=== PATIENT | male | born 1950 | race Caucasian/White ===

== ENCOUNTER 2017-04-20 17:32 | Emergency (ER) | payer OTHER ==
[2017-04-20 17:51] VITALS: TEMP 97.9; O2SAT 94
--- NOTE | 2017-04-20 18:08 | EDPHY ---
H & P Stated Complaint: finger laceration Time Seen by Provider: 04/20/17 17:50 HPI/ROS: CHIEF COMPLAINT: Finger laceration HISTORY OF PRESENT ILLNESS: Patient is a 66-year-old man who comes to the emergency department complaining of a laceration to his left index finger at the middle phalanx dorsally. This happened about 30 min ago in his trying to cut bread. He has normal sensation distally and normal range of motion and strength. No other injuries. REVIEW OF SYSTEMS: Constitutional: denies: chills, fever, recent illness, recent injury EENTM: denies: blurred vision, double vision, nose congestion Respiratory: denies: cough, shortness of breath Cardiac: denies: chest pain, irregular heart rate, lightheadedness, palpitations Gastrointestinal/Abdominal: denies: abdominal pain, diarrhea, nausea, vomiting, blood streaked stools Genitourinary: denies: dysuria, frequency, hematuria, pain Musculoskeletal: denies: joint pain, muscle pain Skin: See HPI Neurological: denies: headache, numbness, paresthesia, tingling, dizziness, weakness Hematologic/Lymphatic: denies: blood clots, easy bleeding, easy bruising Immunologic/allergic: denies: HIV/AIDS, transplant EXAM: GENERAL: Well-appearing, well-nourished and in no acute distress. HEAD: Atraumatic, normocephalic. EYES: Pupils equal round and reactive to light, extraocular movements intact, sclera anicteric, conjunctiva are normal. ENT: TMs normal, nares patent, oropharynx clear without exudates. Moist mucous membranes. NECK: Normal range of motion, supple without lymphadenopathy or JVD. LUNGS: Breath sounds clear to auscultation bilaterally and equal. No wheezes rales or rhonchi. HEART: Regular rate and rhythm without murmurs, rubs or gallops. ABDOMEN: Soft, nontender, normoactive bowel sounds. No guarding, no rebound. No masses appreciated. BACK: No CVA tenderness, no spinal tenderness, step-offs or deformities EXTREMITIES: Normal range of motion, no pitting or edema. No clubbing or cyanosis. NEUROLOGICAL: Cranial nerves II through XII grossly intact. Normal speech, normal gait. 5/5 strength, normal movement in all extremities, normal sensation PSYCH: Normal mood, normal affect. SKIN: Is see HPI, 1.5 cm laceration Source: Patient Exam Limitations: No limitations - Personal History Current Tetanus/Diphtheria Vaccine: Yes Current Tetanus Diphtheria and Acellular Pertussis (TDAP): Yes - Medical/Surgical History Hx Asthma: No Hx Chronic Respiratory Disease: No Hx Diabetes: No Hx Cardiac Disease: No Hx Renal Disease: No Hx Cirrhosis: No Hx Alcoholism: No Hx HIV/AIDS: No Hx Splenectomy or Spleen Trauma: No Other PMH: UTI's, Sepsis, enlarged prostate - Family History Significant Family History: No pertinent family hx - Social History Smoking Status: Never smoked Alcohol Use: Sober Drug Use: None Constitutional: Initial Vital Signs Temperature (C) 36.6 C 04/20/17 17:48 Heart Rate 70 04/20/17 17:48 Respiratory Rate 18 04/20/17 17:48 Blood Pressure 160/82 H 04/20/17 17:48 O2 Sat (%) 94 04/20/17 17:48 O2 Delivery Mode Room Air Allergies/Adverse Reactions: No Known Allergies Allergy (Unverified 04/20/17 17:51) Home Medications: Medication Instructions Recorded RAPAFLO 04/20/17 Medical Decision Making Procedures: Procedure: Laceration repair. Verbal consent was obtained from the patient. The 1.5 cm left index finger laceration was anesthetized with 0.5% bupivacaine locally infiltrated. The wound was irrigated copiously according to protocol, draped and explored to its base. It was approximately 1/2 cm deep. There were no deep structures involved. No tendon, nerve, or vascular injury was identified when explored through full range of motion. No foreign body was identified. The wound was repaired with 5.0 Prolene, 4 sutures, interrupted. The wound repair was simple without wound margin revisement or multiple flap alignment. The procedure was performed by myself. A dressing was then placed with sterile gauze and bacitracin. ED Course/Re-evaluation: 6:20 p.m. we discussed wound care and suture removal. We discussed indications for returning. Patient and feel comfortable in her eager to go home. No sign of tendon or vascular injury but discussed symptoms to watch for. Differential Diagnosis: Partial list of the Differential diagnosis considered include but were not limited to; laceration, tendon injury and although unlikely based on the history and physical exam, I also considered foreign body, infection. I discussed these differential diagnoses and the plan with the patient as well as the usual and expected course. The patient understands that the diagnosis is provisional and that in medicine we are not always correct and that further workup is often warranted. Usual and customary warnings were given. All of the patient's questions were answered. The patient was instructed to return to the emergency department should the symptoms at all worsen or return, otherwise to followup with the physician as we discussed. Departure - Departure Disposition: Home, Routine, Self-Care Clinical Impression: Laceration Condition: Fair Instructions: Finger Laceration (ED) Referrals: Ti Pride MD [Primary Care Provider] - As per Instructions
[2017-04-20] MEDS ORDERED: BACITRACIN OINTMENT 1 PACKET TP ONE (18:23)
[2017-04-20 18:39] VITALS: BP 172/74; PULSE 68; RESP 20
== END 2017-04-20 18:39 | disposition home or self-care (01) ==
LOC: CED 17:32
PROC: 0HQGXZZ Repair Left Hand Skin, External Approach (ICD-10-PCS; principal; 2017-04-20)
DX: S61.211A Laceration without foreign body of left index finger without damage to nail, initial encounter (principal); W45.8XXA Other foreign body or object entering through skin, initial encounter